=== PATIENT | male | born 1955 | race Caucasian/White ===

== ENCOUNTER 2018-05-24 15:55 | Outpatient (CLI) | payer MEDICARE, MEDICAID ==
--- NOTE | 2018-05-24 17:28 | RAD ---
LEFT HIP: 05/24/18 Two views. HISTORY: Hip pain. Degenerative change at the hip. Osteopenia. No acute fracture identified. IMPRESSION: No evidence of acute fracture. POS: [facility]
--- NOTE | 2018-05-24 17:29 | RAD ---
LEFT FEMUR: 05/24/18 Total of four views. HISTORY: Femur pain. History of prior fracture. FINDINGS/IMPRESSION: There is an old healed fracture involving the distal femoral diaphysis. Degenerative changes of the h ip and knee. No acute fracture identified. POS: [facility]
== END 2018-05-24 15:56 | disposition home or self-care (01) ==
LOC: BICRAD 15:55
PROVIDERS: ATTEND Family Medicine
DX: M25.552 Pain in left hip (principal); M16.12 Unilateral primary osteoarthritis, left hip; M17.12 Unilateral primary osteoarthritis, left knee; Z87.81 Personal history of (healed) traumatic fracture

== ENCOUNTER 2019-04-22 14:39 | Outpatient (CLI) | payer MEDICARE, MEDICAID ==
--- NOTE | 2019-04-22 18:02 | RAD ---
RIGHT SHOULDER 2 VIEWS: Date: 04/22/19 HISTORY: Chronic pain syndrome, right shoulder pain. FINDINGS/IMPRESSION: No fracture, dislocation, or bony destruction seen. There are degenerative changes in the acromioclav icular joint. POS: [facility]
== END 2019-04-22 14:40 | disposition home or self-care (01) ==
LOC: BICRAD 14:39
PROVIDERS: ATTEND Family Medicine
DX: G89.4 Chronic pain syndrome (principal); M19.011 Primary osteoarthritis, right shoulder

== ENCOUNTER 2021-09-09 13:52 | Outpatient (CLI) | payer MEDICARE | END 2021-09-09 13:53 | disposition home or self-care (01) | LOC: BICCT 13:52 | PROVIDERS: ATTEND Dentist General Practice | DX: K01.1 Impacted teeth (principal) | CPT/HCPCS: 70486 ==

== ENCOUNTER 2025-02-24 13:22 | Outpatient (CLI) | payer OTHER | END 2025-02-24 13:23 | disposition home or self-care (01) | LOC: ULT 13:22 | PROVIDERS: ATTEND Nurse Practitioner Family | DX: M79.89 Other specified soft tissue disorders (principal) | CPT/HCPCS: 76999 ==

== ENCOUNTER 2025-05-07 15:25 | Emergency (ER) | payer OTHER ==
[2025-05-07 16:21] LABS: #Basophils 0.04 10x3/uL (0.0-0.2); #Eosinophils 0.14 10x3/uL (0.0-0.7); #Monocytes 0.47 10x3/uL (0.11-0.59); #Neutrophils 5.08 10x3/uL (1.40-6.50); %Basophils 0.6 % (0.0-1.0); %Eosinophils 2.1 % (0.0-10.0); %Lymphocytes 14.2 % (21.0-51.0); %Monocytes 7.0 % (0.0-10.0); %Neutrophils 75.8 % (42.0-75.0); Hematocrit 46.3 % (42.0-52.0); Hemoglobin 14.6 g/dL (14.0-18.0); Mean Corpuscular Hemoglobin 28.7 pg (27.0-31.0); Mean Corpuscular Volume 91.0 fL (78.0-98.0); Platelet Count 378 10x3/uL (130-400); Red Blood Cell (RBC) Count 5.09 mill/uL (4.70-6.10); White Blood Cell (WBC) Count 6.70 10x3/uL (4.8-10.8)
[2025-05-07 16:37] LABS: ALT (SGPT) 39 U/L (Less than 45); AST (SGOT) 59 U/L (11-34); Albumin 4.4 g/dL (3.1-4.5); Alkaline Phosphatase 201 U/L (40-110); Anion Gap 17 mmol/L (10-20); BUN (Urea Nitrogen) 24 mg/dL (8.4-25.7); Bilirubin, Total 0.4 mg/dL (0.3-1.2); Calc. Creatinine Clearance 0 mL/min (70-130); Calcium 9.9 mg/dL (7.8-10.44); Carbon Dioxide 20 mmol/L (23-31); Chloride 105 mmol/L (98-107); Globulin 4.4 g/dL (2.4-3.5); Glucose 93 mg/dL (80-115); Potassium 5.2 mmol/L (3.5-5.1); Sodium 137 mmol/L (136-145)
[2025-05-07] MEDS ORDERED: Enoxaparin 80 MG (0.8 mL) SYRINGE ONE (17:36)
== END 2025-05-07 23:29 | disposition short-term general hospital (02) ==
LOC: ERS 15:25
DX: R07.9 Chest pain, unspecified (principal)
CPT/HCPCS: 71045; 80053; 83880; 84484; 85025; 93005; 96372; J1650